=== PATIENT | male | born 1980 | race Caucasian/White ===

== ENCOUNTER 2022-03-11 13:26 | Emergency (ER) | payer BC, SELFPAY ==
[2022-03-11 14:17] VITALS: BP 138/85; PULSE 74; O2SAT 98
--- NOTE | 2022-03-11 14:27 | CT_ITS ---
FINAL REPORT TECHNIQUE: Axial CT images of the abdomen and pelvis were obtained after the administration of IV contrast. Coronal reformatted images were also obtained and reviewed.This study was performed with techniques to keep radiation doses as low as reasonably achievable (ALARA). Individualized dose reduction techniques using automated exposure control or adjustment of mA and/or kV according to the patient's size were employed. CLINICAL HISTORY: abd pain, generalized, prior kidney stones. COMPARISON: None FINDINGS: CT OF THE ABDOMEN AND PELVIS WITH CONTRAST Abdomen: The lung bases are clear. The heart is normal in size. The liver has an unremarkable appearance, without evidence of mass or biliary ductal dilatation. The gallbladder is unremarkable. The spleen is unremarkable. No adrenal mass is present. The pancreas has an unremarkable appearance. The kidneys are normal, without evidence of mass or hydronephrosis. The aorta is normal in caliber. There is wall thickening in the ascending colon with some adjacent stranding in fluid; appearance is worrisome for colitis. Pelvis: The appendix is not well-visualized. There is no localized inflammation in the region. The urinary bladder is unremarkable. No inflammatory process is seen. There is no evidence of mass or adenopathy. There is a small amount of pelvic free fluid, likely reactive. IMPRESSION: Findings consistent with ascending colitis. Small amount of pelvic free fluid, likely reactive. Reviewed, Interpreted and Dictated by Noah Hernandez III, MD Transcribed by Margarita Boggs Authenticated and [facility]
--- NOTE | 2022-03-11 14:29 | [facility].EDGENADL ---
Discharge Plan Disposition Patient Disposition: Home, Self-Care Condition: Good Prescriptions Prescriptions: New amoxicillin-pot clavulanate 875-125 mg tablet 1 tab PO BID Qty: 20 0RF ondansetron 4 mg tablet,disintegrating 4 mg PO Q8H PRN (Reason: nausea and vomiting) 5 Days Qty: 14 0RF hydrocodone-acetaminophen 5-325 mg tablet 1 tab PO Q6H PRN (Reason: pain) Qty: 10 0RF Referrals Follow up/Referrals: Jyoti Hernandez [Primary Care Provider] - See instructions Activity Restrictions/Add. Instructions Additional Instructions/Restrictions: Follow-up promptly with your global director air and climate change. Call today or tomorrow for an appointment. Return for worsening abdominal pain, fever or other concerns. Clinical Impressions Clinical Impression: Colitis Discharge ED Provider: Sebastian Moreland Adult HPI General Stated complaint: RT abd pain fever Time Seen by Provider: 03/11/22 14:17 History of Present Illness HPI narrative: Patient presents with a 3-day history of abdominal pain and vomiting. He describes the pain as severe and generalized. He denies associated fever. He denies exacerbating or alleviating symptoms. He does have a history of kidney stones Related Data Previous Rx's Medication Instructions Recorded amoxicillin 875 mg-potassium 1 tab PO BID #20 tabs 03/11/22 clavulanate 125 mg tablet hydrocodone 5 mg-acetaminophen 325 1 tab PO Q6H PRN pain #10 tabs 03/11/22 mg tablet ondansetron 4 mg disintegrating 4 mg PO Q8H PRN nausea and 03/11/22 tablet vomiting 5 days #14 tabs Allergies Allergy/AdvReac Type Severity Reaction Status Date / Time sulfamethoxazole Allergy Verified 03/11/22 14:49 [From Bactrim] trimethoprim [From Bactrim] Allergy Verified 03/11/22 14:49 [facility] Disclaimer: The information contained in this section may have been updated after the patient was seen, as this information can be updated by other users. Social History Smoking Status: Unknown if ever smoked alcohol intake: never current occupational status: employed Travel in the last 8 weeks: None ROS Obtained: Yes All systems reviewed & no additional complaints except as documented Physical Exam General General appearance: alert and in no apparent distress Head Head exam: atraumatic Eye Eye exam: Present normal appearance ENT ENT exam: Present normal exam Neck Neck exam: Present normal inspection Chest Chest inspection: Present normal inspection Respiratory Respiratory exam: Present normal lung sounds bilaterally Cardiovascular Cardiovascular exam: Present regular rate and normal rhythm Abdominal Exam Abdominal exam: Present soft and tenderness (Diffuse and mild) Extremities Exam Extremities exam: Present normal inspection Back Exam Back exam: Present normal inspection; Absent tenderness Neurological Exam Neurological exam: Present alert and oriented X3 Psychiatric Psychiatric exam: Present normal affect Skin Skin exam: Present warm and dry Lymphatic Lymphatic Findings: no adenopathy Medical Decision Making Kevin Inquiry Pt receiving controlled substance: Yes Kevin was queried for this patient: No Risks and benefits of using a controlled substance: were discussed with pt by me Vital Signs: 03/11/22 14:17 03/11/22 14:31 Pulse Rate 74 66 Blood Pressure 138/85 134/81 02 Sat by Pulse Oximetry 28 L 99 Lab Data Lab Results 03/11/22 14:15: WBC 8.0, RBC 4.48 L, Hgb 13.8 L, Hct 41.8 L, MCV 93.2, MCH 30.9, MCHC 33.1, RDW 13.0, Plt Count 343, MPV 7.7, Neut % (Auto) 68.8, Lymph % (Auto) 25.1, [place] % (Auto) 4.5, Eos % (Auto) 1.1, Baso % (Auto) 0.6, Neut # (Auto) 5.5, Lymph # (Auto) 2.0, [place] # (Auto) 0.4, Eos # (Auto) 0.1, Baso # (Auto) 0.1 03/11/22 14:15: Sodium 142, Potassium 3.4 L, Chloride 103, Carbon Dioxide 28, Anion Gap 14.4, BUN 14, Creatinine 0.80, Estimated GFR 107, Est GFR ( Amer) 129, Glucose 104 H,
[2022-03-11 14:31] VITALS: BP 134/81; PULSE 66; O2SAT 99
--- NOTE | 2022-03-11 14:49 | PC.NURSE ---
PT GOING TO CT
[2022-03-11 15:07] LABS: Microscopic, Urine URINE MICROSCOPIC (MICROSCOPIC)
[2022-03-11 15:15] LABS: Appearance,Urine CLEAR (Clear); Blood, Urine Negative (Negative); Color,Urine YELLOW (Yellow); Glucose,Urine (UA) Negative (Negative); Ketones,Urine 1+ (Negative); Leukocyte Esterase,Urine Negative (Negative); Nitrate,Urine Negative (Negative); PH,Urine 5.5 (5.0-8.5); Protein,Urine 1+ (Negative); Specific Gravity, Urine >= 1.030 (1.005-1.030); Urobilinogen,Urine 0.2 EU/dl (0.2)
[2022-03-11 15:23] LABS: Basophils # 0.1 K/mm3 (0-0.2); Basophils % 0.6 % (0.1-2.0); Eosinophils # 0.1 K/mm3 (0.0-0.4); Eosinophils % 1.1 % (0.1-12.0); Hematocrit 41.8 % (42.0-52.0); Hemoglobin 13.8 g/dL (14.1-18.0); Lymphocytes % 25.1 % (10-50); Mean Corpuscular HGB Conc 33.1 g/dL (31.8-35.4); Mean Corpuscular Hemoglobin 30.9 pg (27.0-31.2); Mean Corpuscular Volume 93.2 fl (80-94); Mean Platelet Volume 7.7 fl (7.4-10.4); Monocytes # 0.4 K/mm3 (0.1-1.0); Monocytes % 4.5 % (1.7-9.3); Neutrophils # 5.5 K/mm3 (1.8-7.8); Neutrophils % 68.8 % (37.0-80.0); Platelet Count 343 K/mm3 (142-424); Red Blood Count 4.48 M/mm3 (4.60-6.20)
[2022-03-11 15:29] LABS: Alanine Aminotransferase 22 U/L (12-78); Albumin Level 5.1 g/dl (3.5-5.0); Albumin/Globulin Ratio 1.4 (1.1-1.8); Alkaline Phosphatase 81 U/L (38-126); Anion Gap 14.4 mEq/L (5-15); Aspartate Amino Transferase 27 U/L (17-59); Bilirubin,Total 0.5 mg/dl (0.2-1.3); Blood Urea Nitrogen 14 mg/dl (9-20); Calcium 9.7 mg/dl (8.4-10.2); Carbon Dioxide 28 mmol/L (22.0-30.0); Chloride 103 mmol/L (98-107); Estimated Glomerular Filt Rate 107 ml/min (>60); GFR (African American) 129 ML/MIN (>60); Globulin 3.7 g/dL (1.3-3.2); Glucose 104 mg/dl (74-100); Lipase 81 U/L (23-300); Potassium 3.4 mmoL/L (3.5-5.1); Sodium 142 mmol/L (136-145); Total Protein,Serum 8.8 g/dl (6.3-8.2)
[2022-03-11 15:32] LABS: Bilirubin,Urine Negative (Negative)
[2022-03-11 15:42] LABS: Squamous Epithelial Cell,Urine Occasional #/hpf (0-5)
[2022-03-11 15:43] LABS: Calcium Oxalate Crystals,Urine Trace /lpf
--- NOTE | 2022-03-11 17:00 | PC.NURSE ---
[facility] called about prescription for patient, called to state patient is on suboxone
[2022-03-11 17:30] VITALS: BP 130/78; PULSE 96; RESP 18; TEMP 36.7; O2SAT 99
[2022-03-11 18:20] VITALS: BP 153/88; PULSE 101; RESP 18; O2SAT 96
[2022-03-11 18:26] VITALS: BP 134/81; PULSE 76; RESP 16; TEMP 36.7; O2SAT 99; BMI 18.1
[2022-03-11 18:30] VITALS: BP 130/78
--- NOTE | 2022-03-11 18:38 | PC.NURSE ---
ED TRIAGE DONE BY VAL RN WAS ON WRONG COMPUTER
== END 2022-03-11 17:32 | disposition home or self-care (01) ==
PROVIDERS: Emergency Provider Emergency Medicine; PCP Emergency Medicine
DX: K52.9 Noninfective gastroenteritis and colitis, unspecified (principal); Z87.442 Personal history of urinary calculi
CPT/HCPCS: 74177; 80053; 81001; 83690; 85025; 96374; 96375; 99285; J2405; Q9967